=== PATIENT | female | born 1990 | race Caucasian/White ===

== ENCOUNTER 2016-10-14 12:10 | Inpatient (IN) | payer MEDICAID ==
[~2016-10-14] VITALS: Ht 157.5 cm; Wt 68.6 kg
[~2016-10-14 12:10] MED LIST: FERR240T9 PO; PREN-39 PO
[2016-10-14] MEDS ORDERED: LACTATED RINGER'S 1,000 ML IV SCH (12:16)
[2016-10-14] MEDS ORDERED: AMPICILLIN 2 GM/NS (PMX) 100 ML ONE (12:21)
[2016-10-14] MEDS ORDERED: CARBOPROST 250 MCG INJ IM PRN (12:30)
[2016-10-14] MEDS ORDERED: METHYLERGONOVINE 0.2 MG INJ IM PRN (12:30)
[2016-10-14] MEDS ORDERED: LIDOCAINE 1% (MPF) 30 ML INJ INJ PRN (12:30)
[2016-10-14] MEDS ORDERED: OXYTOCIN 30 UNITS/LR 500 ML IV SCH ×2 (12:30)
[2016-10-14] MEDS ORDERED: BUTORPHANOL 2 MG INJ IV PRN (12:30)
[2016-10-14] MEDS ORDERED: AMPICILLIN 2 GM/NS (PMX) 100 ML IV ONE (12:30)
[2016-10-14] MEDS ORDERED: LACTATED RINGER'S 1,000 ML IV PRN (12:30)
[2016-10-14] MEDS ORDERED: IBUPROFEN 600 MG TAB PO PRN (12:30)
[2016-10-14] MEDS ORDERED: MISOPROSTOL 200 MCG TAB PR PRN (12:30)
[2016-10-14] MEDS ORDERED: OXYTOCIN 30 UNITS/LR 500 ML IV PRN (12:30)
[2016-10-14 12:47] VITALS: BP 119/76; PULSE 70; RESP 20; Ht 157.5 cm; Wt 68.6 kg
--- NOTE | 2016-10-14 13:00 | LDN ---
Date/Time of Note Date/Time of Note DATE: 10/14/16 TIME: 12:55 Delivery Summary Normal spontaneous vaginal delivery of a baby girl from OA position meconium stained amniotic fluid placenta and membranes meconium staining sent to pathology estimated blood loss 200 mL patient sustained half centimeter right labia minora laceration repaired with single interrupted 4-0 chromic catgut Weeks of Gestation 38 weeks Placenta Delivered: Spontaneously Meconium: Light Episiotomy: No Laceration repair: After centimeter laceration on the right labia minora repaired with single interrupted 4-0 chromic catgut Anesthesia type: Local Sponge & Needle done & correct: Yes All needle counts correct: Yes Any foreign bodies felt in the: Yes Problems: Infant Delivery Information Sex Sex: female Apgars 1 Minute: 9 5 Minute: 9 Suctioning Nose & mouth suctioned at madelyn: Yes Delee suction performed: No Umbilical Cord Umbilical cord with: 3 Vessels Cord presentations: nuchal cord Cord Blood was obtained: Yes ANASTACIO QUILES MD October 14, 2016 13:00
[2016-10-14 14:39] LABS: ADD SCAN DIFF NO
[2016-10-14 14:43] LABS: BASOPHILS % 0.1 % (0.0-2.0); HEMATOCRIT 39.6 % (37.0-47.0); HEMOGLOBIN 13.9 g/dl (12.0-16.0); LYMPHOCYTES # 1.5 10^3/ul (0.8-2.9); MEAN CORPUSCULAR HEMOGLOBIN 31.2 pg (29.0-33.0); MEAN CORPUSCULAR HGB CONC 35.1 g/dl (32.0-37.0); MEAN CORPUSCULAR VOLUME 88.8 fl (82.0-101.0); MONOCYTE # 0.4 10^3/ul (0.3-0.9); MONOCYTES % 3.6 % (0.0-11.0); NEUTROPHIL # 7.8 10^3/ul (1.6-7.5); NEUTROPHILS % 80.4 % (39.0-77.0); PLATELET COUNT 230 10^3/UL (140-415); RED BLOOD COUNT 4.46 10^6/ul (4.20-5.40); RED CELL DISTRIBUTION WIDTH 12.7 % (11.5-14.5); WHITE BLOOD COUNT 9.7 10^3/ul (4.8-10.8)
[2016-10-14 15:00] LABS: INR 0.79; PT RATIO 0.9
[2016-10-14 15:01] LABS: PARTIAL THROMBOPLASTIN TIME 28.3 Sec (25.0-35.0)
[2016-10-14 15:30] VITALS: BP 130/82; PULSE 61; RESP 18
[2016-10-14] MEDS ORDERED: BENZOCAINE 20% 56 ML SPRAY TOP PRN (15:30)
[2016-10-14] MEDS ORDERED: ACETAMINOPHEN 325 MG TAB PO PRN (15:30)
[2016-10-14] MEDS ORDERED: LANOLIN 7 GM TUBE TOP PRN (15:30)
[2016-10-14] MEDS ORDERED: ONDANSETRON 4 MG INJ IV PRN (15:30)
[2016-10-14] MEDS ORDERED: WITCH HAZEL/GLYCERIN PAD PR PRN (15:30)
[2016-10-14] MEDS ORDERED: OXYCODONE/ASPIRIN (4.88/325) TAB PO PRN ×2 (15:30)
[2016-10-14] MEDS ORDERED: DIBUCAINE 1% 30 GM OINT PR PRN (15:30)
[2016-10-14] MEDS ORDERED: ACETAMINOPHEN/CODEINE #3 TAB PO PRN ×2 (15:30)
[2016-10-14 16:10] VITALS: BP 117/71; PULSE 63; RESP 18
[2016-10-14] MEDS ORDERED: AMPICILLIN 1 GM/NS (PMX) 50 ML IV SCH (16:30)
[2016-10-14] MEDS: OXYTOCIN 30 UNITS/LR 500 ML IV SCH (17:33)
[2016-10-14] MEDS: IBUPROFEN 600 MG TAB PO SCH ×2 (17:34→23:26)
--- NOTE | 2016-10-14 19:33 | HP ---
Date/Time of Note Date/Time of Note DATE: 10/14/16 TIME: 18:54 OB - History Hx of Present Free Text/Dictation 26 y/o G/ admitted to l&d in active labor, on admission pelvic exam cx 9 cm intact membrane at -2station transferred to l&d for delivery no record available fht category 1 : 5 Para: 2 Spontaneous : 2 Care: Limited Care Ultrasounds: Other Medical Complications: Other Past Family/Social History * Past Medical, Surgical, Family and Obstetric Histories reviewed from chart. OB Admission Exam Vital Signs Vital Signs Vital Signs Date Time Temp Pulse Resp B/P Pulse Ox O2 Delivery O2 Flow Rate FiO2 10/14/16 16:10 98.2 63 18 117/71 Room Air Physical Exam Heart: Rhythm Normal Lungs: Clear, Equal Abdomen: WNL Extremities: Normal Reflexes: Normal Cervical Dilatation: 9cm Effacement: 100% Station: 0 Membranes: Intact Heart Rate: 130's Accelerations: Accelerations Present Decelerations: No Decelerations Varibility: Moderate Intensity: Firm Last 72 hours Lab Results CBC & BMP 10/14/16 14:30 OB Assessment/Plan Reason for admission: active labor, other ANASTACIO QUILES MD October 14, 2016 19:22
[2016-10-14 19:35] VITALS: BP 128/87; PULSE 69; RESP 19
[2016-10-14] MEDS: SENNA/DOCUSATE NA (8.6MG/50MG) TAB PO SCH (21:21)
[2016-10-15] MEDS: OXYTOCIN 30 UNITS/LR 500 ML IV SCH (01:15)
[2016-10-15 04:05] VITALS: BP 114/56; PULSE 67; RESP 18
[2016-10-15] MEDS: IBUPROFEN 600 MG TAB PO SCH ×4 (05:33→23:32)
[2016-10-15 08:03] LABS: ADD SCAN DIFF NO
[2016-10-15 08:05] VITALS: BP 103/54; PULSE 58; RESP 20
[2016-10-15 08:08] LABS: BASOPHILS % 0.2 % (0.0-2.0); EOSINOPHILS % 0.2 % (0.0-7.0); HEMATOCRIT 35.5 % (37.0-47.0); LYMPHOCYTES # 3.3 10^3/ul (0.8-2.9); LYMPHOCYTES % 33.2 % (15.0-51.0); MEAN CORPUSCULAR HEMOGLOBIN 30.5 pg (29.0-33.0); MEAN CORPUSCULAR HGB CONC 33.8 g/dl (32.0-37.0); MEAN CORPUSCULAR VOLUME 90.1 fl (82.0-101.0); MONOCYTE # 0.5 10^3/ul (0.3-0.9); MONOCYTES % 5.1 % (0.0-11.0); NEUTROPHILS % 60.6 % (39.0-77.0); PLATELET COUNT 205 10^3/UL (140-415); RED BLOOD COUNT 3.94 10^6/ul (4.20-5.40); RED CELL DISTRIBUTION WIDTH 13.1 % (11.5-14.5); WHITE BLOOD COUNT 9.9 10^3/ul (4.8-10.8)
[2016-10-15] MEDS: SENNA/DOCUSATE NA (8.6MG/50MG) TAB PO SCH ×2 (09:14→20:44)
--- NOTE | 2016-10-15 11:45 | PN ---
Date/Time of Note Date/Time of Note DATE: 10/15/16 TIME: 11:44 OB Subjective Subjective Subjective day 1 Afebrile VSs stable abdomen soft uterus firm lochia extremity normal ambulation encouraged Laboratory Tests Test 10/14/16 14:30 10/15/16 07:35 White Blood Count 9.710^3/ul 9.910^3/ul Red Blood Count 4.4610^6/ul 3.9410^6/ul Hemoglobin 13.9g/dl 12.0g/dl Hematocrit 39.6% 35.5% Mean Corpuscular Volume 88.8fl 90.1fl Mean Corpuscular Hemoglobin 31.2pg 30.5pg Mean Corpuscular Hemoglobin Concent 35.1g/dl 33.8g/dl Red Cell Distribution Width 12.7% 13.1% Platelet Count 65782^3/UL 13055^3/UL Mean Platelet Volume 11.0fl 11.0fl Neutrophils % 80.4% 60.6% Lymphocytes % 15.0% 33.2% Monocytes % 3.6% 5.1% Eosinophils % 0.0% 0.2% Basophils % 0.1% 0.2% Nucleated Red Blood Cells % 0.0/100WBC 0.0/100WBC Neutrophils # 7.810^3/ul 6.010^3/ul Lymphocytes # 1.510^3/ul 3.310^3/ul Monocytes # 0.410^3/ul 0.510^3/ul Eosinophils # 0.010^3/ul 0.010^3/ul Basophils # 0.010^3/ul 0.010^3/ul Nucleated Red Blood Cells # 0.010^3/ul 0.010^3/ul Prothrombin Time 11.0Sec Prothrombin Time Ratio 0.9 INR International Normalized Ratio 0.79 Activated Partial Thromboplast Time 28.3Sec Rapid Plasma Reagin NONREACTIVE Current Medications Medications (Trade) Dose Ordered Sig/Vanessa Route PRN Reason Start Time Stop Time Status Last Admin Dose Admin Lactated Ringer's 1,000 ml @ 125 mls/hr Q8H IV 10/14/16 12:16 10/14/16 15:15 DC 10/14/16 12:29 Ampicillin 100 ml @ 100 mls/hr ONCE ONCE IV 10/14/16 12:30 10/14/16 13:29 DC 10/14/16 12:30 Ampicillin (Ampicillin 1 Gm/ NS (Pmx)) 50 ml @ 100 mls/hr Q4H IV 10/14/16 16:30 10/14/16 16:30 DC Butorphanol Tartrate (Stadol) 2 mg Q2H PRN IV PAIN 10/14/16 12:30 10/14/16 15:16 DC Lidocaine 30 ml 30 ml ONCE PRN INJ EPISIOTOMY/TEARING 10/14/16 12:30 10/14/16 15:16 DC Oxytocin/Lactated Ringer's 500 ml @ 125 mls/hr ONCE -MAY REPEAT X1 IV 10/14/16 12:30 10/14/16 15:16 DC 10/14/16 15:00 Oxytocin/Lactated Ringer's 500 ml @ 125 mls/hr ONCE IV 10/14/16 12:30 10/14/16 15:16 DC 10/14/16 15:02 Ibuprofen 600 mg 600 mg ONCE PRN PO Mild Pain (Pain Score 1-3) 10/14/16 12:30 10/14/16 15:16 DC Lactated Ringer's 1,000 ml @ 2,000 mls/hr Q30M PRN IV PRE-EPIDURAL BOLUS 10/14/16 12:30 10/14/16 15:16 DC Oxytocin/Lactated Ringer's 500 ml @ 0 mls/hr ONCE PRN IV For Hemorrhage Management 10/14/16 12:30 10/14/16 15:16 DC Methylergonovine Maleate (Methergine) 0.2 mg ONCE PRN IM VAGINAL BLEEDING 10/14/16 12:30 10/14/16 15:16 DC Carboprost Tromethamine (Hemabate) 250 mcg ONCE PRN IM VAGINAL BLEEDING 10/14/16 12:30 10/14/16 15:17 DC Misoprostol 1000 mcg 1,000 mcg ONCE PRN NH VAGINAL BLEEDING 10/14/16 12:30 10/14/16 15:16 DC Ampicillin 100 ml @ ud STK-MED ONCE .ROUTE 10/14/16 12:21 10/14/16 12:22 DC Oxytocin/Lactated Ringer's 500 ml @ 125 mls/hr Q4H IV 10/14/16 15:15 5/20/17 23:14 DC 10/14/16 17:33 Ibuprofen (Motrin) 600 mg Q6 PO 10/14/16 18:00 10/15/16 05:33 Acetaminophen (Tylenol Tab) 650 mg Q4H PRN PO PAIN LEVEL 1-5 10/14/16 15:30 Acetaminophen/ Codeine Phosphate (Tylenol No.3) 1 tab Q4H PRN PO PAIN LEVEL 1-5 10/14/16 15:30 Acetaminophen/ Codeine Phosphate (Tylenol No.3) 2 tab Q4H PRN PO PAIN LEVEL 6-10 10/14/16 15:30 Oxycodone/Aspirin (Percodan) 1 tab Q3H PRN PO PAIN LEVEL 1-5 10/14/16 15:30 Oxycodone/Aspirin (Percodan) 2 tab Q3H PRN PO PAIN LEVEL 6-10 10/14/16 15:30 Ondansetron HCl (Zofran Inj) 4 mg Q6H PRN IV NAUSEA AND/OR VOMITING 10/14/16 15:30 Senna/Docusate Sodium (Senokot-S) 1 tab BID PO 10/14/16 21:00 10/15/16 09:14 Witch Verito/ Glycerin (Tucks Pads) 1 pad BEDSIDE MEDICATION PRN NH HEMORRHOID/EPISIOTMY PAIN 10/14/16 15:30 10/14/16 17:34 Benzocaine (Dermoplast [place]) 1 spray BEDSIDE MEDICATION PRN TOP HEMORRHOID/EPISIOTMY PAIN 10/14/16 15:30 10/14/16 17:34 Dibucaine (Nupercainal) 1 applic BEDSIDE MEDICATION PRN NH HEMORRHOID/EPISIOTMY PAIN 10/14/16 15:30 Lanolin (Vgt-A-Syhglp) 1 applic BEDSIDE MEDICATION PRN TOP BEDSIDE FOR MANUELA TO NIPPLES 10/14/16 15:30 10/14/16 17:34 Measles/Mumps/ Rubella Vaccine Live (Mmr Ii Vaccine) 0.5 ml ONCE ONCE SC* 10/16/16 09:00 10/16/16 09:01 IV Flush (NS 10 ml) 10 ml Q8H AND PRN IV 10/14/16 15:30 ANASTACIO QUILES MD October 15, 2016 11:45
[2016-10-15 16:12] VITALS: BP 109/69; PULSE 63; RESP 17
[2016-10-15 20:00] VITALS: BP 115/71; PULSE 56; RESP 17
[2016-10-16 04:00] VITALS: BP 110/61; PULSE 61; RESP 20
[2016-10-16] MEDS: IBUPROFEN 600 MG TAB PO SCH ×2 (05:38→13:02)
[2016-10-16 08:00] VITALS: BP 101/64
[2016-10-16] MEDS: SENNA/DOCUSATE NA (8.6MG/50MG) TAB PO SCH (08:56)
[2016-10-16] MEDS ORDERED: MEASLES,MUMPS,RUBELLA VACCINE INJ SC* ONE (09:00)
--- NOTE | 2016-10-16 14:01 | PD.PPDC ---
RE[employer]ATOR Discharge Instruction Condition Patient Condition: Good Diet Diet: Resume Regular Diet Activity/Restrictions Activity: Normal Activity May Shower Restrictions: No Exercising No Lifting No Driving No Sexual Activity Nothing in the Vagina No Sigurd No Tampons, douche Wound/Drain Care Instructions Wound/Drain Care Instructions: Wash with soap and water Keep clean and dry Follow-up Follow-up with Physician: 2, Week/Weeks Provider Information: Appointment clinic in 2 weeks for check ANASTACIO QUILES MD October 16, 2016 14:01
--- NOTE | 2016-10-16 14:06 | DS ---
Date/Time of Note Date/Time of Note DATE: 10/16/16 TIME: 14:02 Discharge Summary Admission/Discharge Info Admit Date/Time October 14, 2016 at 12:15 Discharge Date/Time October 16, 2016 at 1400 Final Diagnosis Post normal vaginal delivery Patient Condition: Good Procedures Normal spontaneous vaginal delivery Hx of Present Illness Term admitted in labor Hospital Course Satisfactory uneventful Home Meds Reported Medications Ferrous Gluconate (Iron) 1 Tab Tablet, 1 TAB PO 11/12/14 Vits W-Ca,Fe,Fa(<1MG) ( Vitamins) 1 Tab Tablet, 1 TAB PO AM 11/05/14 Follow-up Plan Appointment clinic in 2 weeks for check Primary Care Provider Care Physician No Primary Time spent on discharge: < 30 minutes ANASTACIO QUILES MD October 16, 2016 14:06
== END 2016-10-16 15:27 | disposition home or self-care (01) | DRG 775 ==
LOC: OBT 12:10 → L-D 12:10 → OBT 12:15 → L-D 12:15 → PP1 15:11
PROVIDERS: ADMIT Obstetrics & Gynecology; ATTEND Obstetrics & Gynecology
PROC: 10E0XZZ Delivery of Products of Conception, External Approach (ICD-10-PCS; principal; 2016-10-14)
PROC: 0HQ9XZZ Repair Perineum Skin, External Approach (ICD-10-PCS; 2016-10-14)
DX: O77.0 Labor and delivery complicated by meconium in amniotic fluid (principal); O69.81X0 Labor and delivery complicated by cord around neck, without compression, not applicable or unspecified; O70.0 First degree perineal laceration during delivery; Z3A.38 38 weeks gestation of pregnancy; Z37.0 Single live birth
CPT/HCPCS: 85025; 85610; 85730; 86592; 86900; 86901; G0463; J0290; J2590; J7120